=== PATIENT | female | born 2005 | race Two or more races ===

== ENCOUNTER 2025-04-14 21:05 | Emergency (ER) | payer OTHER ==
[~2025-04-14] VITALS: Ht 165.1 cm; Wt 69.3 kg
[2025-04-15] MEDS: ONDANSETRON 4MG/2ML VIAL IV ONE (02:39)
[2025-04-15 02:58] LABS: BASO # 0.1 10^3/uL (0.0-0.2); BASO % 0.7 % (0.0-1.0); EOS # 0.3 10^3/uL (0.0-0.5); EOS % 2.6 % (0.0-3.0); LYMPH # 4.0 10^3/uL (1.5-5.0); LYMPH % 38.7 % (24.0-44.0); MONO # 1.0 10^3/uL (0.0-0.8); MONO % 9.4 % (2.0-8.0); NEUTROPHILS # 5.0 10^3/uL (1.5-8.5); NEUTROPHILS % 48.3 % (36.0-66.0); PLATELET COUNT, AUTOMATED 276 10^3/uL (150-450)
[2025-04-15 05:03] VITALS: BP 123/77; TEMP 97.2; O2SAT 97
== END 2025-04-15 05:08 | disposition home or self-care (01) ==
LOC: M ED 21:05
DX: S40.021A Contusion of right upper arm, initial encounter (principal); M79.601 Pain in right arm; Y92.410 Unspecified street and highway as the place of occurrence of the external cause; Y93.9 Activity, unspecified; Y99.9 Unspecified external cause status; Z88.5 Allergy status to narcotic agent
CPT/HCPCS: 73060; 73090; 73200; 80047; 85025; 86140; 96374; 96375; 99284; J2405; J3010